=== PATIENT | female | born 1955 | race Caucasian/White ===

== ENCOUNTER 2019-01-16 15:49 | Emergency (ER) | payer OTHER ==
[~2019-01-16] VITALS: Ht 165.1 cm; Wt 60.3 kg
[2019-01-16] MEDS ORDERED: HYDROCODONE/APAP 5MG-325MG TAB PO ONE (17:00)
[2019-01-16] MEDS ORDERED: HYDROCODONE/APAP 5MG-325MG TAB ONE (17:04)
--- NOTE | 2019-01-16 17:07 | NUR ---
HYDROCODONE WASTED WITH MD WITH PILL INTO SHARP BOX. (DR SOLORZANO)
[2019-01-16] MEDS ORDERED: TRAMADOL HCL 50 MG TAB ONE (17:08)
[2019-01-16] MEDS ORDERED: TRAMADOL HCL 50 MG TAB PO ONE (17:15)
--- NOTE | 2019-01-16 18:56 | Diagnostic Imaging Report ---
History:Swelling behind right ear Comparison studies: None Technique: Axial images were obtained through the maxillofacial region. Coronal and sagittal images reconstructed from the axial data. Intravenous contrast: None Dose modulation, iterative reconstruction, and/or weight based adjustment of the mA/kV was utilized to reduce the radiation dose to as low as reasonably achievable. Findings: Soft tissues: No abnormalities. Bones: No fractures or bone abnormalities. Orbits: Globes: Intact Extra or intraconal abnormalities: None. Paranasal sinuses: Clear IMPRESSION: 1. Normal examination. Signed by: DR Sergio Martinez M.D. on 01/16/2019 6:53 PM
== END 2019-01-16 19:05 | disposition home or self-care (01) ==
LOC: ER 15:49 → FSED 19:05
DX: H61.21 Impacted cerumen, right ear (principal); J01.10 Acute frontal sinusitis, unspecified; K21.9 Gastro-esophageal reflux disease without esophagitis
CPT/HCPCS: 70486; 99284

== ENCOUNTER → 2020-03-06 | Outpatient (CLI) | payer MEDICARE ==
--- NOTE | 2020-03-06 19:11 | Diagnostic Imaging Report ---
Meckel's Scan Reason for exam: Abdominal pain; cramping Radiopharmaceutical: Tc-99m pertechnetate 7.1 mCi IV Report: After administration of the radiopharmaceutical, dynamic images of the abdomen in the anterior projection were obtained through 60 minutes. Distribution of tracer activity appears physiologic throughout the abdomen. No focal abnormality is identified nor is there any focal uptake of tracer that appears to intensify over time. Impression: No scan evidence of ectopic gastric mucosa. Signed by: Dr. Gely Jesus M.D. on 03/06/2020 7:07 PM
== END ==
LOC: NM 11:27
PROVIDERS: ATTEND Internal Medicine Gastroenterology
DX: R10.11 Right upper quadrant pain (principal)
CPT/HCPCS: 78290; A9512

== ENCOUNTER → 2020-10-30 | Outpatient (CLI) | payer MEDICARE ==
[~2020-10-30] MED LIST: IOPAMIDOL 370 MG/ML 200 ML INFUS..BTL INJ ONE; SODIUM CHLORIDE 0.9% 50ML 50 ML ONE
[2020-10-30 14:07] LABS: BLOOD UREA NITROGEN 13 mg/dL (7-26); BUN/CREATININE RATIO 16 (6-25); CREATININE, SERUM 0.82 mg/dL (0.57-1.11); EST GLOMERULAR FILTRATION RATE > 60 ML/MIN (60-)
== END ==
LOC: CT 13:10
PROVIDERS: ATTEND Internal Medicine Nephrology
DX: N18.2 Chronic kidney disease, stage 2 (mild) (principal); N28.1 Cyst of kidney, acquired
CPT/HCPCS: 36415; 74178; 82565; 84520; Q9967

== ENCOUNTER → 2021-10-24 | Outpatient (CLI) | payer MEDICARE | LOC: US 10:26 | PROVIDERS: ATTEND Internal Medicine Nephrology | DX: N18.2 Chronic kidney disease, stage 2 (mild) (principal) | CPT/HCPCS: 76770; 76857 ==